=== PATIENT | female | born 1955 | race African-American/Black ===

== ENCOUNTER 2022-01-30 21:51 | Emergency (ER) | payer MEDICARE, MEDICAID ==
[~2022-01-30] VITALS: Ht 157.5 cm; Wt 49.9 kg
[2022-01-30 21:55] VITALS: BP 196/83
--- NOTE | 2022-01-30 21:55 | NUR ---
Patient BIB by ALS from home. C/O seizure x today. Per witness , patient had seizure x 4 times, BS 119, BP 200/120, HR 84, Oxygen sat 98%, Patient woke up when [facility] arrived, A/O,X2. Delayed response. PMHx: Seizure, DM, HTN, CVA
--- NOTE | 2022-01-30 22:08 | NUR ---
dr hale at bedside for exam
--- NOTE | 2022-01-30 22:35 | NUR ---
PT. WENT TO CT.
--- NOTE | 2022-01-30 22:35 | NUR ---
pt with very poor venous access. 22g sl established left a/c, unable to obtain labs
--- NOTE | 2022-01-30 22:48 | NUR ---
pt. back from CT.
--- NOTE | 2022-01-30 23:38 | NUR ---
SWABS OBTAINED AND SENT TO LAB
[2022-01-30 23:45] LABS: BASOPHILS % (AUTO) 0.7 % (0.0-2.0); EOSINOPHILS # (AUTO) 0.1 K/uL (0-0.4); EOSINOPHILS % (AUTO) 1.4 % (0.0-4.0); HEMATOCRIT 28.3 % (36-48); HEMOGLOBIN 9.4 g/dL (12.0-16.0); LYMPHOCYTES # (AUTO) 2.9 K/uL (2.5-16.5); LYMPHOCYTES % (AUTO) 45.2 % (20.5-51.1); MEAN CORPUSCULAR HEMOGLOBIN 29 pg (27-31); MEAN CORPUSCULAR HGB CONC 33 g/dL (33-37); MEAN CORPUSCULAR VOLUME 87.2 fL (80-94); MONOCYTES # (AUTO) 0.5 K/uL (0.8-1.0); MONOCYTES % (AUTO) 7.2 % (1.7-9.3); NEUTROPHILS # (AUTO) 2.9 K/uL (1.8-7.7); NEUTROPHILS % (AUTO) 45.5 % (42.2-75.2); PLATELET COUNT (AUTO) 198 K/uL (140-450); RED BLOOD CELL COUNT(AUTO) 3.24 MIL/uL (4.20-5.40); RED CELL DISTRIBUTION WIDTH 15.5 % (11.6-13.7); WHITE BLOOD COUNT (AUTO) 6.5 K/uL (4.8-10.8)
--- NOTE | 2022-01-30 23:59 | NUR ---
PT CALLING OUT, "I'M HAVING A SEIZURE" NO SZ ACTIVITY IS NOTED AT THIS TIME BUT PT IS SOMEWHAT ANXIOUS
[2022-01-31 01:12] LABS: ALBUMIN 3.3 g/dL (3.4-5.0); CARBON DIOXIDE 24.3 mmol/L (21-32); CREATININE 1.6 mg/dL (0.6-1.3); POTASSIUM 4.3 mmol/L (3.5-5.1); TOTAL BILIRUBIN 0.1 mg/dL (0.0-1.0)
--- NOTE | 2022-01-31 01:40 | NUR ---
STRAIGHT CATHED FOR UA, URINE SENT TO LAB
[2022-01-31 01:50] LABS: APPEARANCE,URINE CLEAR (CLEAR); BILIRUBIN,URINE NEGATIVE (NEGATIVE); BLOOD, URINE NEGATIVE (NEGATIVE); COLOR,URINE YELLOW (YELLOW); LEUKOCYTE ESTERASE ,URINE NEGATIVE (NEGATIVE); NITRITE, URINE NEGATIVE (NEGATIVE); UGLUCOSE NEGATIVE (NEGATIVE)
--- NOTE | 2022-01-31 02:00 | NUR ---
PACED ON BEDPAN AND VOUIDED LARGE [place] MARC[place] COLORED URINE. TOR CARE GIVEN AND POSITIONED FOR COMFORT
[2022-01-31 02:01] LABS: BARBITURATE, URINE NEGATIVE ng/ml (NEG <=200); BENZODIAZEPINE, URINE NEGATIVE ng/mL (NEG <=200); CANNABINOID, URINE NEGATIVE ng/mL (NEG <=50); COCAINE, URINE NEGATIVE ng/mL (NEG <=300); OPIATE, URINE NEGATIVE ng/mL (NEG <=2000); PHENCYCLIDINE SCREEN,URINE NEGATIVE ng/mL (NEG <=25)
--- NOTE | 2022-01-31 03:27 | NUR ---
CALLS PLACED TO FAMILY LISTED ON DEMOGRAPHIC, PHONE NUMBERS ARE NOT CORRECT, PERSONS ANSWERING PHONE SAY THEY DON'T KNOW PT. PT IS UNABLE TO PROVIDE CURRENT INFORMATION
--- NOTE | 2022-01-31 06:35 | NUR ---
ADDITIONAL PHONE NUMBER RECEIVED FOR PTS SONSTUART, . CALL PLACED, NO ANSWER
--- NOTE | 2022-01-31 07:23 | NUR ---
Received report from GEOVANNY Uriostegui. Assumed care at this time.
--- NOTE | 2022-01-31 08:58 | NUR ---
Assessed pt's gait. Unsteady gait and unable to stand without assistance. Pt states "I don't know why I feel so weak." Pt set back in bed and placed back on bedside monitor.
[2022-01-31 09:04] VITALS: BP 176/81
--- NOTE | 2022-01-31 11:05 | NUR ---
Patient discharged with v/s stable. Written and verbal after care instructions given and explained. Patient verbalized understanding. Wheel Chair Assisted with to car. All questions addressed prior to discharge. Advised to follow up with PMD.
== END 2022-01-31 11:05 | disposition home or self-care (01) ==
LOC: MED 21:51
DX: R56.9 Unspecified convulsions (principal); Z20.822 Contact with and (suspected) exposure to COVID-19; E11.9 Type 2 diabetes mellitus without complications; I10 Essential (primary) hypertension; Z86.73 Personal history of transient ischemic attack (TIA), and cerebral infarction without residual deficits
CPT/HCPCS: 36415; 70450; 71045; 80053; 80305; 81003; 85025; 87426; 87804; 93005; 99285; Q0092